=== PATIENT | female | born 1985 | race Hispanic/Latino ===

== ENCOUNTER 2022-10-15 12:03 | Day surgery (SDC) | payer BC ==
[2022-10-15 12:48] VITALS: BMI 32.0
[2022-10-15] MEDS ORDERED: hydrALAZINE 20 MG/ML VIAL SLOW IVP PRN (14:04)
== END 2022-10-15 15:30 | disposition home or self-care (01) ==
LOC: CSHLD/OP 12:03
PROVIDERS: ATTEND Obstetrics & Gynecology
DX: O63.0 Prolonged first stage (of labor) (principal); O24.419 Gestational diabetes mellitus in pregnancy, unspecified control; Z3A.38 38 weeks gestation of pregnancy
CPT/HCPCS: 99283